=== PATIENT | female | born 1960 | race Two or more races ===

== ENCOUNTER 2023-02-02 12:20 | Emergency (ER) | payer OTHER ==
[~2023-02-02] VITALS: Ht 157.5 cm; Wt 68.0 kg
[2023-02-02 12:26] VITALS: BP 183/87
[2023-02-02 13:11] LABS: BASOPHILS # (AUTO) 0.1 X10'3 (0-0.2); EOSINOPHILS % (AUTO) 0.6 % (0-6); HEMATOCRIT 43.1 % (35.0-45.0); HEMOGLOBIN 14.4 g/dl (12.0-16.0); LYMPHOCYTES # (AUTO) 1.9 X10'3 (1.1-4.8); LYMPHOCYTES % (AUTO) 21.5 % (21-51); MEAN CORPUSCULAR HEMOGLOBIN 29.5 PG (27.0-31.0); MEAN CORPUSCULAR HGB CONC 33.4 g/dL (33.0-36.5); MEAN CORPUSCULAR VOLUME 88.3 FL (78-98); MEAN PLATELET VOLUME 10.2 FL (7.4-10.4); MONOCYTES # (AUTO) 0.5 X10'3 (0-0.9); MONOCYTES % (AUTO) 5.5 % (2-12); NEUTROPHILS # (AUTO) 6.2 X10'3 (1.8-7.7); NEUTROPHILS % (AUTO) 71.4 % (42-75); PLATELET COUNT 284 X10'3 (140-440); RED BLOOD COUNT 4.89 X10'6 (4.20-5.60); RED CELL DISTRIBUTION WIDTH 13.9 % (11.5-14.5); WHITE BLOOD COUNT 8.7 X10'3 (4.5-11.0)
[2023-02-02 13:38] LABS: ALANINE AMINOTRANSFERASE 23 U/L (12-78); ALBUMIN 3.8 G/DL (3.4-5.0); ALKALINE PHOSPHATASE 193 IU/L (46-116); ANION GAP 10 (8-16); ASPARTATE AMINO TRANSFERASE 18 U/L (10-37); BILIRUBIN,TOTAL 0.3 MG/DL (0.1-1.0); BLOOD UREA NITROGEN 7 MG/DL (7-18); BUN/CREATININE RATIO 10.8 (10.0-20.0); CALCIUM 9.1 MG/DL (8.5-10.1); CHLORIDE 97 MMOL/L (99-107); CREATININE 0.65 MG/DL (0.40-0.90); POTASSIUM 3.6 MMOL/L (3.5-5.1); SODIUM 132 MMOL/L (135-145); TOTAL CARBON DIOXIDE 24.9 MMOL/L (24-32); TOTAL PROTEIN 7.8 G/DL (6.4-8.2); eGFR > 90 ML/MIN
[2023-02-02 13:39] LABS: GLUCOSE 462 MG/DL (70-104)
--- NOTE | 2023-02-02 13:42 | NUR ---
PT GLUCOSE 462. RN NOTIFIED CHAVA Malagon
[2023-02-02] MEDS ORDERED: normal saline 1000ML IV soln IVB ONE (15:15)
[2023-02-02] MEDS ORDERED: insulin regular, human 10 units/0.1 ml syringe IV ONE (15:15)
[2023-02-02 15:21] LABS: CLARITY,URINE SLIGHTLY CLOUDY (Clear); COLOR,URINE STRAW (Yellow); GLUCOSE, URINE >=1000 mg/dl (Neg); KETONES,URINE >=80 mg/dl (Neg); LEUKOCYTE ESTERASE ,URINE NEGATIVE (Neg); NITRITES, URINE NEGATIVE (Neg); OCCULT BLOOD,URINE NEGATIVE (Neg); PH,URINE 5.5 (4.8-8.0); PROTEIN,URINE NEGATIVE (Neg); UROBILINOGEN,URINE 0.2 E.U/dL (0.2-1.0)
[2023-02-02 15:22] LABS: UA COLLECTION TYPE CLN CATCH MIDSTREAM
[2023-02-02] MEDS ORDERED: METF-436 PO (15:22)
[2023-02-02 15:30] LABS: HYALINE CASTS 0-3 /LPF (NEGATIVE); MUCUS STRANDS FEW /LPF (Neg); SQUAMOUS EPITHELIAL CELL,UR MODERATE /LPF (FEW)
[2023-02-02 15:31] LABS: BACTERIA,URINE FEW /HPF (Neg); RBC,URINE 0-2 /HPF (0-2); WBC,URINE 0-4 /HPF (0-4)
[2023-02-02] MEDS ORDERED: insulin regular, human 10 units/0.1 ml syringe SQ ONE (16:10)
== END 2023-02-02 16:52 | disposition home or self-care (01) ==
LOC: ER 12:21
DX: R73.9 Hyperglycemia, unspecified (principal); E86.0 Dehydration; L85.3 Xerosis cutis; I10 Essential (primary) hypertension
CPT/HCPCS: 36415; 80053; 81001; 82948; 85025; 96360; 96372; 99283; J1815; J7030